=== PATIENT | female | born 2000 | race Two or more races ===

== ENCOUNTER 2021-11-22 21:23 | Inpatient (IN) | payer MEDICAID ==
[~2021-11-22] VITALS: Ht 154.9 cm; Wt 52.6 kg
[2021-11-22 23:46] LABS: BASOPHILS % (AUTO) 0.5 % (0.0-2.0); EOSINOPHILS % (AUTO) 0.7 % (1.0-6.0); HEMATOCRIT 45.4 % (36-46); HEMOGLOBIN 15.4 g/dL (12.0-16.0); LYMPHOCYTES # (AUTO) 1.8 K/uL (1.0-4.8); LYMPHOCYTES % (AUTO) 17.4 % (22.0-44.0); MEAN CORPUSCULAR HEMOGLOBIN 30.7 pg (26.0-34.0); MEAN CORPUSCULAR HGB CONC 33.9 G/dL (31.0-37.0); MEAN CORPUSCULAR VOLUME 90 fL (80-100); MONOCYTES # (AUTO) 0.6 K/uL (0.1-1.0); MONOCYTES % (AUTO) 5.5 % (2.0-9.0); NEUTROPHILS # (AUTO) 8.1 K/uL (1.8-7.7); NEUTROPHILS % (AUTO) 75.9 % (40.0-70.0); PLATELET COUNT (AUTO) 349 K/uL (150-450); RED BLOOD CELL COUNT(AUTO) 5.02 MIL/uL (4.00-5.20); RED CELL DISTRIBUTION WIDTH 12.6 % (11.5-14.5)
[2021-11-23] LABS: ANION GAP 9 mmol/L (8-16); CALCIUM, TOTAL 9.8 mg/dL (8.8-10.5); CARBON DIOXIDE 25 mmol/L (22-29); CHLORIDE 100 mmol/L (98-107); CREATININE 0.85 mg/dL (0.60-1.30); GLOMERULAR FILTR. RATE CALC > 60 mL/min (>60); GLUCOSE,RANDOM 88 mg/dL (70-110); POTASSIUM 4.1 mmol/L (3.5-5.1); SODIUM SERUM 134 mmol/L (136-145); UREA NITROGEN, BLOOD 12 mg/dL (7-18)
[2021-11-23] MEDS ORDERED: LORazepam 2 MG TABLET PO PRN
[2021-11-23] MEDS ORDERED: HALOPERIDOL 5 MG TABLET PO PRN
[2021-11-23] MEDS ORDERED: ZOLPIDEM TARTRATE 10 MG TABLET PO PRN
[2021-11-23 00:11] LABS: ALANINE AMINOTRANSFERASE 14 U/L (12-78); ALBUMIN 4.5 g/dL (3.4-5.0); ALKALINE PHOSPHATASE 80 U/L (46-116); ASPARTATE AMINOTRANSFERASE 20 U/L (15-37); BILIRUBIN,TOTAL 0.4 mg/dL (0.1-1.0); HCG,QUANTITATIVE < 1 mIU/mL (0-6); TOTAL PROTEIN, SERUM 8.7 g/dL (6.4-8.2)
[2021-11-23 00:39] LABS: AMPHET/METH SCREEN,URINE NEGATIVE (NEGATIVE); BARBITURATE SCREEN, URINE NEGATIVE (NEGATIVE); BENZODIAZEPINES SCREEN,URINE NEGATIVE (NEGATIVE); CANNABINOID SCREEN,URINE POSITIVE (NEGATIVE); COCAINE SCREEN,URINE NEGATIVE (NEGATIVE); METHADONE SCREEN, URINE NEGATIVE (NEGATIVE); OPIATE SCREEN,URINE NEGATIVE (NEGATIVE)
[2021-11-23 00:43] LABS: PHENCYCLIDINE SCREEN,URINE NEGATIVE (NEGATIVE)
[2021-11-23] MEDS ORDERED: LIDOCAINE 1% 10 ML VIAL SQ ONE (00:45)
[2021-11-23 03:13] LABS: COVID AG,FIA SOURCE NASAL SWAB
[2021-11-23 11:15] VITALS: BP 125/85
[2021-11-23 16:28] VITALS: BP 112/77
[2021-11-23] MEDS: BACITRACIN 28 GM OINTMENT TP SCH (17:10)
[2021-11-24] MEDS ORDERED: MAG HYDROX/AL HYDROX/SIMETH ES 30 ML SUSPENSION UDCUP PO PRN (06:30)
[2021-11-24] MEDS ORDERED: LOPERAMIDE HCL 2 MG CAPSULE PO PRN (06:30)
[2021-11-24] MEDS ORDERED: PETROLATUM,WHITE 28 GM JELLY TP PRN (06:30)
[2021-11-24] MEDS ORDERED: CloNIDine HCL 0.1 MG TABLET PO PRN (06:30)
[2021-11-24] MEDS ORDERED: MAGNESIUM HYDROXIDE SUSPENSION 30 ML UDCUP PO PRN (06:30)
[2021-11-24] MEDS ORDERED: IBUPROFEN 400 MG TABLET PO PRN (06:30)
[2021-11-24] MEDS ORDERED: DOCUSATE SODIUM 100 MG CAPSULE PO PRN (06:30)
[2021-11-24] MEDS ORDERED: ACETAMINOPHEN 325 MG TABLET PO PRN (06:30)
[2021-11-24] MEDS ORDERED: ONDANSETRON HCL 4 MG TABLET PO PRN (06:30)
[2021-11-24] MEDS ORDERED: NICOTINE 14 MG/24 HOUR PATCH TD PRN (06:30)
[2021-11-24] MEDS ORDERED: GuaiFENesin/D-METHORPHAN [SUGAR-FREE] 200-20MG/10 ML SYRUP UDCUP PO PRN (06:30)
[2021-11-24] MEDS ORDERED: ALBUTEROL SULFATE HFA 90 MCG/PUFF 8 GM INHALER IH PRN (06:30)
[2021-11-24 08:05] VITALS: BP 113/65
[2021-11-24] MEDS: BACITRACIN 28 GM OINTMENT TP SCH ×2 (09:00→18:10)
[2021-11-24] MEDS: SERTRALINE HCL 50 MG TABLET PO SCH (15:41)
[2021-11-24 16:14] VITALS: BP 115/72
[2021-11-25 08:30] VITALS: BP 120/76
[2021-11-25] MEDS: SERTRALINE HCL 50 MG TABLET PO SCH (09:23)
[2021-11-25] MEDS: BACITRACIN 28 GM OINTMENT TP SCH (09:23)
[2021-11-25] MEDS ORDERED: SERT-439 PO (13:01)
== END 2021-11-25 15:35 | disposition home or self-care (01) | DRG 754 ==
LOC: EMS 21:23 → 3EI 11-23 10:19
PROVIDERS: ADMIT Psychiatry & Neurology Child & Adolescent Psychiatry; ATTEND Psychiatry & Neurology Child & Adolescent Psychiatry
DX: F32.A Depression, unspecified (principal); E87.1 Hypo-osmolality and hyponatremia; R45.851 Suicidal ideations; Z20.822 Contact with and (suspected) exposure to COVID-19; F12.10 Cannabis abuse, uncomplicated; F41.9 Anxiety disorder, unspecified; G47.00 Insomnia, unspecified
CPT/HCPCS: 80053; 84702; 85025; 99285; G0480; J3490